=== PATIENT | male | born 1980 | race Caucasian/White ===

== ENCOUNTER 2019-01-01 23:37 | Emergency (ER) | payer BC | END 2019-01-02 00:04 | disposition home or self-care (01) | LOC: BURERS 23:37 | DX: H10.9 Unspecified conjunctivitis (principal); J01.90 Acute sinusitis, unspecified; I10 Essential (primary) hypertension; F17.220 Nicotine dependence, chewing tobacco, uncomplicated; Z79.82 Long term (current) use of aspirin | CPT/HCPCS: 99282 ==

== ENCOUNTER 2019-06-27 20:09 | Emergency (ER) | payer BC, OTHER ==
[2019-06-27] MEDS ORDERED: Sulfameth/Trimethoprim DS 800-160mg TAB ONE (20:34)
[2019-06-27] MEDS ORDERED: Cephalexin 250 MG CAP ONE (20:34)
== END 2019-06-27 20:39 | disposition home or self-care (01) ==
LOC: BURERS 20:09
DX: L03.116 Cellulitis of left lower limb (principal); I10 Essential (primary) hypertension; F17.220 Nicotine dependence, chewing tobacco, uncomplicated
CPT/HCPCS: 99283

== ENCOUNTER 2022-04-11 14:46 | Emergency (ER) | payer BC ==
[~2022-04-11 14:46] MED LIST: Iopamidol 370 76% 100 ML VIAL ONE
[2022-04-11] MEDS ORDERED: diphenhydrAMINE 50 MG/ML VIAL ONE (15:55)
[2022-04-11] MEDS ORDERED: Dexamethasone 10 MG/ML VIAL ONE (15:55)
[2022-04-11] MEDS ORDERED: Boostrix 0.5 ML (Tdap) VIAL (>/=7 yrs of age) ONE (15:56)
[2022-04-11] MEDS ORDERED: Famotidine/PF 20 mg/2ml Vial ONE (15:56)
[2022-04-11] MEDS ORDERED: Clindamycin/D5W 600 mg/50 ml Premix Bag ONE (15:56)
[2022-04-11 16:05] LABS: #Basophils 0.1 thou/uL (0.0-0.2); #Eosinphils 0.2 thou/uL (0.0-0.7); #Lymphocytes 3.3 thou/uL (1.20-3.40); #Monocytes 0.7 thou/uL (0.11-0.59); #Neutrophils 8.4 thou/uL (1.40-6.50); %Basophils 0.7 % (0.0-1.0); %Eosinophils 1.7 % (0.0-10.0); %Monocytes 5.5 % (0.0-10.0); Hemoglobin 14.8 g/dL (14.0-18.0); Mean Corpuscular HGB CONC 33.3 g/dL (32.0-36.0); Mean Corpuscular Hemoglobin 30.6 pg (27.0-31.0); Mean Platelet Volume 6.4 fL (7.4-10.4); Platelet Count 347 10x3/uL (130-400); RBC Distribution Width 12.7 % (11.5-14.5); Red Blood Cell (RBC) Count 4.83 mill/uL (4.70-6.10); White Blood Cell (WBC) Count 12.7 10x3/uL (4.8-10.8)
[2022-04-11 16:23] LABS: ALT (SGPT) 35 U/L (8-55); AST (SGOT) 28 U/L (5-34); Albumin 3.7 g/dL (3.5-5.0); Alkaline Phosphatase 81 U/L (40-110); Anion Gap 14 mmol/L (10-20); BUN (Urea Nitrogen) 17 mg/dL (8.9-20.6); Bilirubin, Total 0.4 mg/dL (0.2-1.2); Calc. Creatinine Clearance 0 mL/min (70-130); Calcium 9.2 mg/dL (7.8-10.44); Carbon Dioxide 27 mmol/L (22-29); Chloride 105 mmol/L (98-107); Estimated GFR 108; Globulin 3.7 g/dL (2.4-3.5); Glucose 87 mg/dL (70-105); Potassium 3.9 mmol/L (3.5-5.1); Protein, Total 7.4 g/dL (6.0-8.3); Sodium 142 mmol/L (136-145)
== END 2022-04-11 17:36 | disposition home or self-care (01) ==
LOC: BURERS 14:46
DX: K11.1 Hypertrophy of salivary gland (principal); I10 Essential (primary) hypertension; E78.00 Pure hypercholesterolemia, unspecified; Z23 Encounter for immunization
CPT/HCPCS: 70491; 80053; 85025; 90471; 90715; 96365; 96375; J1100; J1200; J3490; Q9967; S0028